=== PATIENT | male | born 1980 | race Caucasian/White ===

== ENCOUNTER 2018-10-18 21:20 | Emergency (ER) | payer BC, OTHER ==
[2018-10-18] MEDS ORDERED: Sodium Chloride 0.9% 1,000 ML IV STA (21:23)
[2018-10-18] MEDS ORDERED: Diphtheria,Pertussis(Acell),Tetanus Vaccine 0.5 ML Syringe IM ONE (21:24)
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
[2018-10-18] MEDS ORDERED: Iopamidol 755 Mg/ML 100 ML Bottle IVPUSH ONE (21:38)
[2018-10-18 22:00] LABS: CHLORIDE,CL 99 mmol/L (98-107); SODIUM,NA 137 mmol/L (136-148)
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
[2018-10-19 01:16] VITALS: BP 142/97
== END 2018-10-18 23:30 | disposition home or self-care (01) ==
LOC: MW.ED 21:20
DX: S00.83XA Contusion of other part of head, initial encounter (principal); S20.219A Contusion of unspecified front wall of thorax, initial encounter; S40.812A Abrasion of left upper arm, initial encounter; S60.041A Contusion of right ring finger without damage to nail, initial encounter; Z23 Encounter for immunization; V86.96XA Unspecified occupant of dirt bike or motor/cross bike injured in nontraffic accident, initial encounter
CPT/HCPCS: 36415; 70450; 71260; 72125; 74177; 80053; 81003; 85025; 90471; 90715; 96360; 96361; 99284; J7040; Q9967; 93005